=== PATIENT | male | born 1980 | race Caucasian/White ===

== ENCOUNTER 2021-09-20 23:32 | Emergency (ER) | payer SELFPAY ==
[~2021-09-20] VITALS: Ht 167.6 cm; Wt 82.0 kg
[2021-09-20 23:51] VITALS: BP 126/84
== END 2021-09-21 04:48 | disposition left against medical advice (07) ==
LOC: ER 23:32
DX: Z53.21 Procedure and treatment not carried out due to patient leaving prior to being seen by health care provider (principal)

== ENCOUNTER 2022-03-07 13:35 | Emergency (ER) | payer MEDICAID ==
[~2022-03-07] VITALS: Ht 172.7 cm; Wt 80.0 kg
[2022-03-07 13:40] VITALS: BP 146/92
[2022-03-07] MEDS ORDERED: ONDANSETRON HCL 4MG/2ML INJ IV STA (13:53)
[2022-03-07] MEDS ORDERED: SODIUM CHLORIDE 0.9% 1,000 ML IV ONE (14:00)
[2022-03-07 15:15] LABS: CHLORIDE 102 mEq/L (98-107)
[2022-03-07 15:22] LABS: ETHANOL BLOOD < 10 mg/dL
[2022-03-07 15:32] LABS: BASOPHILS % 1.1 % (0.0-2.0); EOSINOPHILS % 1.4 % (0.0-5.0); HEMATOCRIT. 41.7 % (42.0-52.0); HEMOGLOBIN. 13.8 g/dL (14.0-18.0); INR 1.6; LYMPHOCYTES % 10.4 % (20.0-50.0); MEAN CORPUSCULAR HEMOGLOBIN 31.5 pg (28.0-32.0); MEAN CORPUSCULAR VOLUME 95.4 fL (80.0-94.0); MEAN PLATELET VOLUME 9.2 fl (7.4-10.4); MONOCYTES % 10.9 % (2.0-8.0); NEUTROPHILS % 76.2 % (40.0-76.0); PLATELET 60 x1000/uL (130-400); PROTHROMBIN TIME 16.1 sec (9.6-11.0); RED BLOOD CELL COUNT 4.38 mill/uL (4.7-6.1); RED CELL DISTRIBUTION WIDTH 15.3 % (11.6-14.6)
== END 2022-03-07 15:53 | disposition left against medical advice (07) ==
LOC: ER 13:55
DX: R11.2 Nausea with vomiting, unspecified (principal); D64.9 Anemia, unspecified; F41.9 Anxiety disorder, unspecified; F32.9 Major depressive disorder, single episode, unspecified
CPT/HCPCS: 36415; 80053; 80320; 83690; 85025; 85610; 93005; 99284; J7030; G0480

== ENCOUNTER 2022-05-18 19:44 | Inpatient (IN) | payer MEDICAID ==
[~2022-05-18] VITALS: Ht 172.7 cm; Wt 93.0 kg
[2022-05-18] MEDS ORDERED: SODIUM CHLORIDE 0.9% 1,000 ML IV ONE (19:45)
[2022-05-18] MEDS ORDERED: ONDANSETRON HCL 4MG/2ML INJ IV STA (19:45)
[2022-05-18] MEDS ORDERED: LORAZEPAM 2MG/ML CPJ IV STA (19:45)
[2022-05-18] MEDS ORDERED: PANTOPRAZOLE SODIUM 40 MG/VIAL IV ONE (19:45)
[2022-05-18 21:44] LABS: BASOPHILS % 0.7 % (0.0-2.0); EOSINOPHILS % 0.1 % (0.0-5.0); HEMATOCRIT. 24.2 % (42.0-52.0); LYMPHOCYTES % 14.8 % (20.0-50.0); MEAN CORPUSCULAR HEMOGLOBIN 30.8 pg (28.0-32.0); MEAN PLATELET VOLUME 10.7 fl (7.4-10.4); MONOCYTES % 12.5 % (2.0-8.0); NEUTROPHILS % 71.9 % (40.0-76.0); PLATELET 69 x1000/uL (130-400); RED BLOOD CELL COUNT 2.61 mill/uL (4.7-6.1); RED CELL DISTRIBUTION WIDTH 17.5 % (11.6-14.6)
[2022-05-18] MEDS ORDERED: ONDANSETRON HCL 4MG/2ML INJ IV NR (21:45)
[2022-05-18] MEDS ORDERED: LORAZEPAM 2MG/ML CPJ IV NR (21:45)
[2022-05-18] MEDS ORDERED: PANTOPRAZOLE SODIUM 40 MG/VIAL IV NR (21:45)
[2022-05-18 21:49] LABS: CHLORIDE 92 mEq/L (98-107)
[2022-05-18 22:08] LABS: CREATINE KINASE 1208 IU/L (39-308); ETHANOL BLOOD < 10 mg/dL
[2022-05-18] MEDS ORDERED: SODIUM CHLORIDE 0.9% 1,000 ML IV NR (22:30)
[2022-05-18] MEDS ORDERED: SODIUM BICARBONATE 8.4% 1 MEQ/ML 50ML SYR IV NR (22:30)
[2022-05-19] VITALS (13 sets, daily range): BP systolic 87–114; BP diastolic 50–87
[2022-05-19] MEDS: FOLIC ACID 1 MG, THIAMINE HCL 100 MG, MVI, ADULT NO.1 10 ML in DEXTROSE 5% WATER 1,000 ML IV NR ×8 (00:24→03:26)
[2022-05-19] MEDS ORDERED: ACETAMINOPHEN 325MG TABLET PO PRN (10:45)
[2022-05-19] MEDS ORDERED: LORAZEPAM 2MG/ML CPJ IV PRN (10:45)
[2022-05-19] MEDS ORDERED: ONDANSETRON HCL 4MG/2ML INJ IV PRN (10:45)
[2022-05-19] MEDS ORDERED: PANTOPRAZOLE 80 MG in SODIUM CHLORIDE 0.9% 100 ML IV SCH (11:00)
[2022-05-19] MEDS ORDERED: MVI, ADULT NO.1 10 ML, FOLIC ACID 1 MG, THIAMINE HCL 100 MG in SODIUM CHLORIDE 0.9% 1,0... IV NR ×4 (11:00)
[2022-05-19] MEDS ORDERED: OCTREOTIDE 1,000 MCG in SODIUM CHLORIDE 0.9% 98 ML IV SCH (11:00)
[2022-05-19] MEDS: SODIUM CHLORIDE 0.9% 1,000 ML IV SCH (11:34)
[2022-05-19] MEDS: OCTREOTIDE 1,000 MCG in SODIUM CHLORIDE 0.9% 100 ML IV SCH (13:05)
[2022-05-19 13:25] LABS: INR 1.7; PROTHROMBIN TIME 17.8 sec (9.6-11.0)
[2022-05-19 13:42] LABS: BASOPHILS % 0.6 % (0.0-2.0); EOSINOPHILS % 1.2 % (0.0-5.0); HEMATOCRIT. 21.3 % (42.0-52.0); HEMOGLOBIN. 7.1 g/dL (14.0-18.0); LYMPHOCYTES % 15.1 % (20.0-50.0); MEAN CORPUSCULAR HEMOGLOBIN 30.9 pg (28.0-32.0); MEAN CORPUSCULAR VOLUME 92.3 fL (80.0-94.0); MONOCYTES % 9.9 % (2.0-8.0); NEUTROPHILS % 73.2 % (40.0-76.0); RED BLOOD CELL COUNT 2.31 mill/uL (4.7-6.1); RED CELL DISTRIBUTION WIDTH 16.8 % (11.6-14.6)
[2022-05-19 13:46] LABS: MEAN PLATELET VOLUME 10.4 fl (7.4-10.4); PLATELET 54 x1000/uL (130-400)
[2022-05-19 14:11] LABS: CHLORIDE 97 mEq/L (98-107)
[2022-05-19 14:29] LABS: PLATELET ESTIMATE DECREASED; TOTAL IRON BINDING CAPACITY 307 ug/dL (250-450)
[2022-05-19 14:40] LABS: VITAMIN B12 SERUM 1203 pg/mL (211-911)
[2022-05-19 15:10] LABS: FERRITIN 53 ng/mL (22-322)
[2022-05-19 15:21] LABS: HEPATITIS B SURFACE ANTIGEN NEGATIVE
[2022-05-19] MEDS ORDERED: POTASSIUM CHLORIDE INJ 40 MEQ in DEXT 5% WATER 250 ML IV NR (16:00)
[2022-05-19] MEDS ORDERED: LACTULOSE 20G/30ML UDC PO NR (16:45)
[2022-05-19] MEDS ORDERED: POTASSIUM CHLORIDE 20MEQ/PACKET PO NR (17:00)
[2022-05-19] MEDS ORDERED: PHYTONADIONE 10MG/ML AMP SUBCUT SCH (20:00)
[2022-05-19] MEDS: PANTOPRAZOLE SODIUM 40 MG/VIAL IV SCH (21:04)
[2022-05-19] MEDS: LACTULOSE 20G/30ML UDC PO SCH (23:14)
[2022-05-20] VITALS (13 sets, daily range): BP systolic 97–130; BP diastolic 39–75
[2022-05-20] MEDS: SODIUM CHLORIDE 0.9% 1,000 ML IV SCH ×3 (01:11→10:05)
[2022-05-20] MEDS ORDERED: POTASSIUM CHLORIDE 20MEQ/PACKET PO NR (02:00)
[2022-05-20 02:57] LABS: BASOPHILS % 1.1 % (0.0-2.0); EOSINOPHILS % 4.4 % (0.0-5.0); HEMATOCRIT. 23.3 % (42.0-52.0); HEMOGLOBIN. 7.8 g/dL (14.0-18.0); LYMPHOCYTES % 24.6 % (20.0-50.0); MEAN CORPUSCULAR HEMOGLOBIN 30.3 pg (28.0-32.0); MEAN CORPUSCULAR VOLUME 90.9 fL (80.0-94.0); MONOCYTES % 11.4 % (2.0-8.0); NEUTROPHILS % 58.5 % (40.0-76.0); RED BLOOD CELL COUNT 2.56 mill/uL (4.7-6.1); RED CELL DISTRIBUTION WIDTH 17.9 % (11.6-14.6)
[2022-05-20 03:04] LABS: INR 1.7; PARTIAL THROMBOPLASTIN TIME 31.1 sec (23.4-31.0); PROTHROMBIN TIME 17.2 sec (9.6-11.0)
[2022-05-20 04:52] LABS: PLATELET 48 x1000/uL (130-400)
[2022-05-20] MEDS: LACTULOSE 20G/30ML UDC PO SCH ×2 (06:21→13:40)
[2022-05-20] MEDS: PANTOPRAZOLE SODIUM 40 MG/VIAL IV SCH (08:04)
[2022-05-20] MEDS: OCTREOTIDE 1,000 MCG in SODIUM CHLORIDE 0.9% 100 ML IV SCH (08:04)
[2022-05-20] MEDS ORDERED: MIRT-89 PO (09:13)
[2022-05-20] MEDS ORDERED: QUET100T34 MT (09:13)
[2022-05-20] MEDS ORDERED: NALT380S2 IM (09:13)
[2022-05-20] MEDS ORDERED: SERT-422 MT (09:13)
[2022-05-20] MEDS ORDERED: GABA-533 MT (09:13)
[2022-05-20] MEDS ORDERED: PROPOFOL 200MG/20ML VIAL IV ONE (15:42)
[2022-05-20] MEDS ORDERED: OMEP40CA20 MT (16:19)
[2022-05-20] MEDS ORDERED: SUCRALFATE 1 G/10 ML UDC PO SCH (17:30)
[2022-05-20] MEDS ORDERED: SUCR1TAB MT (17:59)
== END 2022-05-20 18:39 | disposition home or self-care (01) | DRG 241 ==
LOC: ER 19:44 → MICUSO 22:49 → 5EST 05-19 11:50
PROVIDERS: ADMIT Internal Medicine; ATTEND Internal Medicine
PROC: 30233K1 Transfusion of Nonautologous Frozen Plasma into Peripheral Vein, Percutaneous Approach (ICD-10-PCS; 2022-05-19)
PROC: 30233N1 Transfusion of Nonautologous Red Blood Cells into Peripheral Vein, Percutaneous Approach (ICD-10-PCS; 2022-05-19)
PROC: 0DB78ZX Excision of Stomach, Pylorus, Via Natural or Artificial Opening Endoscopic, Diagnostic (ICD-10-PCS; principal; 2022-05-20)
DX: K29.71 Gastritis, unspecified, with bleeding (principal); D68.9 Coagulation defect, unspecified; D69.6 Thrombocytopenia, unspecified; I24.8 Other forms of acute ischemic heart disease; D62 Acute posthemorrhagic anemia; K20.91 Esophagitis, unspecified with bleeding; K44.9 Diaphragmatic hernia without obstruction or gangrene; K70.30 Alcoholic cirrhosis of liver without ascites; Z20.822 Contact with and (suspected) exposure to COVID-19; F10.239 Alcohol dependence with withdrawal, unspecified; K80.20 Calculus of gallbladder without cholecystitis without obstruction; G62.9 Polyneuropathy, unspecified; F41.9 Anxiety disorder, unspecified; F32.A Depression, unspecified; K31.9 Disease of stomach and duodenum, unspecified; R56.9 Unspecified convulsions; Z79.899 Other long term (current) drug therapy
CPT/HCPCS: 36415; 71045; 76705; 80048; 80053; 80076; 80307; 80320; 80329; 82140; 82270; 82550; 82607; 82728; 82746; 83540; 83550; 83605; 84443; 84484; 85025; 85044; 86705; 86709; 86803; 86850; 86900; 86920; 86927; 87340; 87426; 93970; 99291; C9113; J2060; J2354; J2405; J2704; J3411; J3430; J3480; J3490; J7030; J7050; J7060; J7070; P9016; P9017; G0480; P9036

== ENCOUNTER → 2023-11-20 | Outpatient (CLI) | payer SELFPAY ==
[~2023-11-20] MED LIST: GABA-534 MT; MIRT-89 PO; NALT380S2 IM; OMEP40CA20 MT; QUET100T34 MT; SERT-422 MT; SUCR1TAB MT
== END | disposition home or self-care (01) ==
LOC: MRI 09:18
DX: G93.89 Other specified disorders of brain (principal); G40.89 Other seizures; G45.9 Transient cerebral ischemic attack, unspecified
CPT/HCPCS: 70551

== ENCOUNTER 2024-01-04 16:59 | Emergency (ER) | payer MEDICAID ==
[~2024-01-04] VITALS: Ht 170.2 cm; Wt 82.0 kg
[2024-01-04 17:14] VITALS: O2SAT 99
[2024-01-04] MEDS ORDERED: TRAMADOL 50MG TABLET PO STA (18:46)
[2024-01-04] MEDS ORDERED: TRAM50TA3 MT (18:48)
[2024-01-04] MEDS: TRAMADOL 50MG TABLET PO NR (19:09)
[2024-01-04 19:12] VITALS: BP 124/60; PULSE 79; RESP 17; TEMP 36.89184; O2SAT 98
[2024-01-07] MEDS ORDERED: LEVE500T9 MT (09:52)
== END 2024-01-04 19:30 | disposition home or self-care (01) ==
LOC: ER 16:59
DX: K40.90 Unilateral inguinal hernia, without obstruction or gangrene, not specified as recurrent (principal); F41.9 Anxiety disorder, unspecified; F32.A Depression, unspecified; D64.9 Anemia, unspecified; Z79.899 Other long term (current) drug therapy
CPT/HCPCS: 82962; 99283